=== PATIENT | female | born 1980 ===

== ENCOUNTER 2018-11-22 16:13 | Outpatient (CLI) | payer OTHER | END 2018-11-22 16:14 | disposition home or self-care (01) | LOC: C.MAMMO 16:13 | DX: Z12.31 Encounter for screening mammogram for malignant neoplasm of breast (principal) ==

== ENCOUNTER 2018-12-20 10:58 | Outpatient (CLI) | payer OTHER | END 2018-12-20 10:59 | disposition home or self-care (01) | LOC: C.MAMMO 10:58 ==